=== PATIENT | female | born 1960 | race Caucasian/White ===

== ENCOUNTER 2017-06-22 21:47 | Emergency (ER) | payer OTHER ==
[~2017-06-22] VITALS: Ht 172.7 cm; Wt 56.3 kg
[2017-06-22 22:17] VITALS: BP 138/88; TEMP 36.5; O2SAT 100; Ht 172.7 cm; Wt 56.3 kg
[2017-06-22] MEDS ORDERED: CEPHALEXIN 500MG HOME PACK 1 EA BTL PO ONE (22:45)
[2017-06-22] MEDS ORDERED: SEPTRA DS HOME PACK 1 EA VIAL PO ONE (22:45)
[2017-06-22] MEDS ORDERED: CEPH500C PO (22:46)
[2017-06-22] MEDS ORDERED: SULF800T23 PO (22:46)
--- NOTE | 2017-06-22 22:48 | EMERGENCY ROOM VISIT NOTE ---
History First contact with patient: 22:29 Chief Complaint: EAR PAIN Stated Complaint: POSSIBLE EAR INFECTION History of Present Illness The patient is a 56 year old female who presents to the Emergency Room with complaints of left ear pain. The patient states that she has had pain in her left ear for the past 4-5 days, worsening over the past 3 days. She is also had a mild sore throat and diarrhea. Her daughter gave her a dose of Keflex which she had at home from a previous prescription. The patient reports she felt no improvement after this, prompting her to comment. She rates her discomfort a 9/10. She denies any history of ear infections or ear problems. She denies any fevers/chills, neck pain or headache. Review of Systems A complete 10 point review of systems was reviewed with the patient with pertinent positives and negatives as per history of present illness. All else were negative. Past Medical/Surgical History Medical Problems: (1) No significant past medical history Surgical Problems: (1) No significant past surgical history Social History Smoking Status: Current Every Day Smoker Housing Status: lives with roommate Occupation Status: unemployed Current/Historical Medications Scheduled Cephalexin Monohydrate (Keflex), 500 MG PO QID Sulfa/Trimethoprim (Bactrim Ds 800MG/160MG), 1 TAB PO BID Miscellaneous Medications None (Patient States No Home Meds) Physical Exam Vital Signs Date Time Temp Pulse Resp B/P (MAP) Pulse Ox O2 Delivery O2 Flow Rate FiO2 06/22/17 22:17 36.5 20 138/88 100 Room Air Physical Exam VITALS: Vitals are noted on the nurse's note and reviewed by myself. Vital signs stable. GENERAL: This is a 56-year-old female, in no acute distress, nondiaphoretic, well-developed well-nourished. SKIN: The skin was without rashes. EARS: The right external auditory canal is clear and tympanic membrane is within normal limits. There is a fleshy mass in the posterior aspect of the left external auditory canal which is tender to palpation. The tympanic membrane is visualized and is within normal limits. EYES: Pupils equal round and reactive to light and accommodation. NOSE: Patent, turbinates without inflammation or discharge. MOUTH: Mucous membranes moist. Tonsils are not enlarged. Pharynx without erythema or exudate. NECK: Supple without nuchal rigidity. No lymphadenopathy. HEART: Regular rate and rhythm without murmurs gallops or rubs. LUNGS: Clear to auscultation bilaterally without wheezes, rales or rhonchi. NEURO: Patient was alert and oriented to person place and time. Medical Decision & Procedures Medications Administered Medications (Trade) Dose Ordered Sig/Chago Route Start Time Stop Time Status Last Admin Dose Admin Cephalexin Monohydrate (Keflex 500MG Home Pack) 1 homepack NOW ONCE PO 06/22/17 22:45 06/22/17 22:46 DC 06/22/17 22:45 1 HOMEPACK Trimethoprim/ Sulfamethoxazole (Sulfameth/ Trimeth Ds 800/ 160MG Home Pack) 1 homepack UD ONCE PO 06/22/17 22:45 06/22/17 22:46 DC 06/22/17 22:45 1 HOMEPACK Medical Decision Differential diagnosis includes otitis media, otitis externa, mass, abscess, among others. The patient was evaluated as above. She has a small area of swelling in the left ear canal consistent with a small area of cellulitis. She will be placed on Bactrim and Keflex and was given information for ENT follow-up. She was instructed to follow-up for recheck in 2 days. She verbalized understanding of my assessment and treatment plan was discharged home in good condition. Medication Reconcilliation Current Medication List: was personally reviewed by me Blood Pressure Screening Patient's blood pressure: Normal blood pressure Impression Primary Impression: Cellulitis of ear canal Departure Information Dispostion Home / Self-Care Condition GOOD Prescriptions Sulfa/Trimethoprim (Bactrim Ds 800MG/160MG) Tab 1 TAB PO BID for 9 Days, #18 TAB Prov: Yojana Ramirez PA-C 06/22/17 Cephalexin Monohydrate (Keflex) 500 Mg Cap 500 MG PO QID for 9 Days, #36 CAP Prov: Yojana Ramirez PA-C 06/22/17 Referrals No Doctor, Assigned (PCP) Patient Instructions My [facility] Additional Instructions You were prescribed Keflex to be taken 4 times daily as prescribed. This is an antibiotic. All antibiotics have the potential to cause diarrhea. Stop this medication and contact a medical provider if you were to develop any significant adverse side effects including: wheezing, shortness of breath, passing out, vomiting, or a diffuse rash. Always take antibiotics as directed and COMPLETE the ENTIRE course regardless of the improvement of your symptoms. You were prescribed Bactrim to be taken twice daily as prescribed. This is an antibiotic. All antibiotics have the potential to cause diarrhea. Stop this medication and contact a medical provider if you were to develop any significant adverse side effects including: wheezing, shortness of breath, passing out, vomiting, or a diffuse rash. Always take antibiotics as directed and COMPLETE the ENTIRE course regardless of the improvement of your symptoms. For pain control, you can use the following [id number] medicines (if >12 yo): - Regular strength (325mg/tab) Tylenol (acetaminophen) 2 tabs every 4-6 hours as needed. Do not exceed 12 tablets in a 24 hour period. Avoid taking more than 4 grams (4000 mg) of Tylenol per day. This includes any other sources of acetaminophen you may take on a regular basis. - Regular strength (200 mg/tab) Advil (ibuprofen) 1-2 tabs every 4-6 hours as needed. Do not exceed a dose of 3200 mg per day. Follow-up with the primary care provider or ENT for a recheck in 10 days. Return to the emergency department with any worsening or new/concerning symptoms. Problem Qualifiers Primary Impression: Cellulitis of ear canal Laterality: left Qualified Codes: H60.12 - Cellulitis of left external ear
== END 2017-06-22 22:54 | disposition home or self-care (01) ==
LOC: C.EDB 21:50 → C.EDA 22:54
DX: H93.8X2 Other specified disorders of left ear (principal); H92.02 Otalgia, left ear; R19.7 Diarrhea, unspecified; R07.0 Pain in throat; F17.200 Nicotine dependence, unspecified, uncomplicated